=== PATIENT | female | born 2000 | race Two or more races ===

== ENCOUNTER 2024-04-02 07:44 | Emergency (ER) | payer OTHER ==
[~2024-04-02] VITALS: Ht 177.8 cm; Wt 104.8 kg
[2024-04-02] MEDS ORDERED: LIDOCAINE 5% (PATCH) 1 EA PATCH TP ONE (07:59)
[2024-04-02] MEDS: LIDOCAINE 5% (PATCH) 1 EA PATCH TP STA (08:02)
[2024-04-02] MEDS ORDERED: LIDO30AD10 TP (08:07)
[2024-04-02 09:14] VITALS: BP 134/71; TEMP 98.7; O2SAT 100
== END 2024-04-02 09:14 | disposition home or self-care (01) ==
LOC: ER 07:44
DX: S46.812A Strain of other muscles, fascia and tendons at shoulder and upper arm level, left arm, initial encounter (principal); Z79.899 Other long term (current) drug therapy; Z60.2 Problems related to living alone; X58.XXXA Exposure to other specified factors, initial encounter; Y93.89 Activity, other specified; Y92.89 Other specified places as the place of occurrence of the external cause; Y99.8 Other external cause status
CPT/HCPCS: 73030-TC